=== PATIENT | female | born 1995 | race Two or more races ===

== ENCOUNTER 2019-01-10 15:14 | Inpatient (IN) | payer OTHER ==
[~2019-01-10] VITALS: Ht 165.1 cm; Wt 101.6 kg
[2019-01-14] MEDS ORDERED: PRENATAL TABLE1 EAC1 PO (17:08)
[2019-01-16] MEDS ORDERED: Tylenol #3 PO (11:43)
== END 2019-01-16 13:21 | disposition home or self-care (01) | DRG 768 ==
LOC: OB/GYN 15:14 → LDR 01-14 16:15 → OB/GYN 01-14 16:15
PROVIDERS: ADMIT Obstetrics & Gynecology
PROC: 0UQC7ZZ Repair Cervix, Via Natural or Artificial Opening (ICD-10-PCS; 2019-01-14)
PROC: 0KQM0ZZ Repair Perineum Muscle, Open Approach (ICD-10-PCS; 2019-01-14)
PROC: 3E033VJ Introduction of Other Hormone into Peripheral Vein, Percutaneous Approach (ICD-10-PCS; 2019-01-14)
PROC: 4A1HXCZ Monitoring of Products of Conception, Cardiac Rate, External Approach (ICD-10-PCS; 2019-01-14)
PROC: 10E0XZZ Delivery of Products of Conception, External Approach (ICD-10-PCS; principal; 2019-01-14 21:00)
DX: O71.3 Obstetric laceration of cervix (principal); Z37.0 Single live birth; O70.1 Second degree perineal laceration during delivery; Z3A.39 39 weeks gestation of pregnancy

== ENCOUNTER 2020-07-01 07:00 | Day surgery (SDC) | payer OTHER ==
[~2020-07-01 07:00] MED LIST: PRENATAL TABLE1 EAC1 PO; Tylenol #3 PO
[2020-07-01] MEDS ORDERED: METHYLERGO0.2 MG/1 M PO (20:40)
[2020-07-01] MEDS ORDERED: KETO10TA2 PO (20:41)
== END 2020-07-01 22:25 | disposition home or self-care (01) ==
LOC: CIR.AMB 07:00 → O/R 20:35 → CIR.AMB 20:35 → SEC-K 20:35 → CIR.AMB 22:25 → O/R 22:25 → SEC-K 07-02 08:43
PROVIDERS: ATTEND Obstetrics & Gynecology
DX: O02.1 Missed abortion (principal); N99.72 Accidental puncture and laceration of a genitourinary system organ or structure during other procedure; Z20.828 Contact with and (suspected) exposure to other viral communicable diseases

== ENCOUNTER 2024-04-29 10:13 | Outpatient (CLI) | payer OTHER ==
[~2024-04-29 10:13] MED LIST changes: +KETO10TA2 PO; +METHYLERGO0.2 MG/1 M PO
== END 2024-04-29 10:14 | disposition home or self-care (01) ==
LOC: PRENATAL 10:13
PROVIDERS: ATTEND Obstetrics & Gynecology Maternal & Fetal Medicine
DX: O26.843 Uterine size-date discrepancy, third trimester (principal); O36.8130 Decreased fetal movements, third trimester, not applicable or unspecified; Z3A.34 34 weeks gestation of pregnancy

== ENCOUNTER 2024-06-03 07:44 | Inpatient (IN) | payer OTHER ==
[~2024-06-03] VITALS: Ht 165.1 cm; Wt 3.6 kg
[2024-06-03 08:10] VITALS: BP 117/73
[2024-06-03] MEDS ORDERED: RINGERS SOLUTION,LACTATED 1,000 ML IV SCH (08:45)
[2024-06-03 08:48] LABS: URINE APPEARANCE Clear; URINE BILIRRUBIN Negative (NEGATIVE); URINE BLOOD Negative; URINE COLOR Dark Yellow; URINE GLUCOSE Negative (NEGATIVE); URINE KETONE Negative (NEGATIVE); URINE LEUKOCYTE Small; URINE NITRATE Negative; URINE PROTEIN Negative (NEGATIVE)
[2024-06-03 08:49] LABS: HEMATOCRIT 37.8 % (36.0-45.00); HEMOGLOBIN 12.8 g/dL (12.0-15.00); MEAN CELL VOLUME 90.6 fL (80.00-100.00); MEAN CORPUSCULAR HEMOGLOBIN 30.7 pg (27.00-32.0); MEAN CORPUSCULAR HGB CONC 33.9 g/dl (32.0-36.0); PLATELET COUNT 221 K/uL (150-450); RED BLOOD COUNT 4.17 M/uL (4.00-6.00)
[2024-06-03 08:53] LABS: URINE BACTERIA 747.1 uL (0.0-1933); URINE EPITHELIAL CELLS 23.4 uL (0.0-38.8); URINE RBC 2.5 uL (0.0-20.8); URINE WBC 61.9 uL (0.0-23.2)
[2024-06-03 09:17] LABS: INR 0.95; PARTIAL THROMBOPLASTIN TIME 28.8 SECONDS (22.0-34.0); PROTHROMBIN TIME 10.4 SECONDS (9.0-11.5)
[2024-06-03 09:20] LABS: ALBUMIN 3.2 gm/dL (3.4-5.0); BILIRUBIN TOTAL 0.73 mg/dL (0.3-1.2); CALCIUM 9.6 mg/dL (8.5-10.1); CREATININE SERUM 0.8 mg/dL (0.55-1.02); GFR 84.8; GLOBULINA 3.9 G/DL (2.4-3.5); POTASSIUM 4.62 mEq/L (3.5-5.1); TOTAL PROTEIN 7.1 gm/dL (6.4-8.2)
[2024-06-03 11:52] VITALS: BP 104/61
[2024-06-03] MEDS ORDERED: MISOPROSTOL 25 MCG/4 ML GEL.W.APPL VAG ONE ×2 (12:30→19:00)
[2024-06-03 16:13] VITALS: BP 114/73
[2024-06-03] MEDS ORDERED: MISOPROSTOL 25 MCG/4 ML GEL.W.APPL ONE (18:45)
[2024-06-03 19:02] VITALS: BP 124/74
[2024-06-03 23:44] VITALS: BP 124/76
[2024-06-04 03:35] VITALS: BP 111/61
[2024-06-04 07:37] VITALS: BP 113/65
[2024-06-04 11:11] VITALS: BP 120/69
[2024-06-04] MEDS ORDERED: MISOPROSTOL 25 MCG TABLET ONE (13:46)
[2024-06-04] MEDS ORDERED: MISOPROSTOL 50 MCG TABLET VAG NR (14:00)
[2024-06-04] MEDS ORDERED: MISOPROSTOL 25 MCG TABLET VAG ONE (14:45)
[2024-06-04 16:09] VITALS: BP 123/72
[2024-06-04] MEDS ORDERED: OXYTOCIN 10 UNITS/ML VIAL ONE (17:51)
[2024-06-04] MEDS ORDERED: ERYTHROMYCIN BASE 1 GM TUBE OP ONE (17:51)
[2024-06-04] MEDS ORDERED: MEPERIDINE HCL/PF 50 MG/ML VIAL IM PRN (22:00)
[2024-06-04] MEDS ORDERED: PROMETHAZINE HCL 25 MG/ML AMPUL IM PRN (22:00)
[2024-06-05 03:43] VITALS: BP 130/85; O2SAT 100
[2024-06-05 08:16] VITALS: BP 122/79
[2024-06-05 10:06] LABS: HEMATOCRIT 39.6 % (36.0-45.00); HEMOGLOBIN 13.3 g/dL (12.0-15.00); MEAN CELL VOLUME 89.1 fL (80.00-100.00); MEAN CORPUSCULAR HGB CONC 33.7 g/dl (32.0-36.0); PLATELET COUNT 179 K/uL (150-450); RED BLOOD COUNT 4.44 M/uL (4.00-6.00); RED CELL DISTRIBUTION WIDTH 13.9 % (11.5-14.5)
[2024-06-05] MEDS ORDERED: OxyCODONE HCL/APAP UD (PERCOCET) PO PRN (10:15)
[2024-06-05 18:01] VITALS: BP 116/74
[2024-06-05 20:46] VITALS: BP 126/78
[2024-06-06 02:21] VITALS: BP 111/72
[2024-06-06 09:46] VITALS: BP 121/81
[2024-06-06 19:26] VITALS: BP 108/72
[2024-06-07] VITALS: BP 125/82
[2024-06-07 08:00] VITALS: BP 122/80
[2024-06-07 14:56] VITALS: BP 113/78
== END 2024-06-07 17:34 | disposition home or self-care (01) | DRG 788 ==
LOC: LDR 07:44 → O/R 06-04 18:53 → OB/GYN 06-04 21:43
PROVIDERS: ADMIT Obstetrics & Gynecology Obstetrics; ATTEND Obstetrics & Gynecology Obstetrics
PROC: 3E0P7VZ Introduction of Hormone into Female Reproductive, Via Natural or Artificial Opening (ICD-10-PCS; 2024-06-03)
PROC: 4A1HXCZ Monitoring of Products of Conception, Cardiac Rate, External Approach (ICD-10-PCS; 2024-06-03)
PROC: 3E033VJ Introduction of Other Hormone into Peripheral Vein, Percutaneous Approach (ICD-10-PCS; 2024-06-04)
PROC: 10D00Z1 Extraction of Products of Conception, Low, Open Approach (ICD-10-PCS; principal; 2024-06-04 17:45)
DX: O36.63X0 Maternal care for excessive fetal growth, third trimester, not applicable or unspecified (principal); O62.0 Primary inadequate contractions; Z37.0 Single live birth; Z20.822 Contact with and (suspected) exposure to COVID-19; Z3A.38 38 weeks gestation of pregnancy